=== PATIENT | female | born 1985 | race African-American/Black ===

== ENCOUNTER 2016-10-14 03:33 | Emergency (ER) | payer SELFPAY ==
[~2016-10-14] VITALS: Ht 162.6 cm; Wt 62.8 kg
[2016-10-14 03:46] VITALS: Ht 162.6 cm; Wt 62.8 kg
[2016-10-14] MEDS ORDERED: ONDANSETRON (ODT) 4 MG TAB ODT STA (04:17)
[2016-10-14] MEDS ORDERED: ACET500C5 PO (04:30)
[2016-10-14] MEDS ORDERED: ONDA4TAB14 PO (04:30)
--- NOTE | 2016-10-14 04:38 | ERD ---
ER Documentation Chief Complaint Date/Time DATE: 10/14/16 TIME: 04:35 Chief Complaint vomiting since taking amoxicillin for otitis media, bilat ear HPI 31-year-old female presents here in emergency department for complaints of vomiting after starting to take amoxicillin today. Patient was diagnosed of an ear infection, is currently taking amoxicillin today, started to have vomiting afterwards, patient felt nauseous and a little bit dizzy. Patient denies any abdominal pain. Patient denies any diarrhea. Patient denies any flank pain. She denies any blood in the vomit. Patient does not have any blood in the stool or black stool. Patient denies any ear discharge. ROS All systems reviewed and are negative except as per history of present illness. Medications Home Meds Active Scripts Ondansetron (Ondansetron Odt) 4 Mg Tab.rapdis, 4 MG PO Q8 Y for NAUSEA AND/OR VOMITING, #30 TAB Prov:TEODORA PRITCHETT [employer] 10/14/16 Acetaminophen* (Tylophen*) 500 Mg Capsule, 1 CAP PO Q6H Y for PAIN AND OR ELEVATED TEMP, #20 CAP Prov:TEODORA PRITCHETT [employer] 10/14/16 Allergies Allergies: Coded Allergies: No Known Allergy (Unverified , 01/25/15) PMhx/Soc History of Surgery: Yes () Anesthesia Reaction: No Hx Neurological Disorder: No Hx Respiratory Disorders: No Hx Cardiac Disorders: No Hx Psychiatric Problems: No Hx Miscellaneous Medical Probl: No Hx Alcohol Use: No Hx Substance Use: No Hx Tobacco Use: No FmHx Family History: No coronary disease, No diabetes, No other Physical Exam Vitals Vital Signs Date Time Temp Pulse Resp B/P Pulse Ox O2 Delivery O2 Flow Rate FiO2 10/14/16 03:46 96.9 76 20 118/81 97 Physical Exam GENERAL: The patient is well developed and appropriate for usual state of health, in no apparent distress. CHEST: Clear to auscultation bilaterally. There are no rales, wheezes or rhonchi. HEENT: Atraumatic. Ears: bilateral ear tympanic membrane noted to be erythematous and bulging. No ear canal swelling. No ear discharge. Nose: normal nasal turbinates, no erythema or swelling. Normal nasal discharge. Throat: oropharynx clear. No tonsillar swelling or tonsillar exudates. No lymphadenopathy. HEART: Regular rate and rhythm. No murmurs, clicks, rubs or gallops. No S3 or S4. ABDOMEN: Soft, nontender and nondistended. Good bowel sounds. No rebound or guarding. No gross peritonitis. No gross organomegaly or masses. No Briscoe sign or McBurney point tenderness. BACK: No midline or flank tenderness. EXTREMITIES: Equal pulses bilaterally. There is no peripheral clubbing, cyanosis or edema. No focal swelling or erythema. Full range of motion. Grossly neurovascularly intact. NEURO: Alert and oriented. Cranial nerves 2-12 intact. Motor strength in all 4 extremities with 5/5 strength. Sensation grossly intact. Normal speech and gait. SKIN: There is no apparent rash or petechia. The skin is warm and dry. HEMATOLOGIC AND LYMPHATIC: There is no evidence of excessive bruising or lymphedema. No gross cervical, axillary, or inguinal lymphadenopathy. Results 24 hrs Current Medications Medications (Trade) Dose Ordered Sig/Deidra Route PRN Reason Start Time Stop Time Status Last Admin Dose Admin Ondansetron HCl (Zofran Odt) 4 mg ONCE STAT ODT 10/14/16 04:17 10/14/16 04:18 DC 10/14/16 04:23 Patient was given Zofran here in the emergency department. After treatment, patient was able to tolerate po fluids here in the emergency department without any vomiting. There is no signs and symptoms of dehydration. Procedures/MDM Medical decision making: Patient has bilateral ear otitis media, currently taking amoxicillin, most likely patient's dizziness and nausea and vomiting most likely from the infection in that area. Patient was given Zofran, patient is able to tolerate oral fluids here in emergency department prior to going home. Patient does not have any symptoms of abdominal emergencies at this time. Patient's abdominal exam is normal. Patient does not have any diarrhea. No symptoms of dehydration. Patient was advised to follow-up with primary care doctor in 2-3 days for reevaluation of symptoms. Patient is advised to return to emergency department for worsening symptoms. Departure Diagnosis: Primary Impression: Bilateral otitis media Otitis media type: serous Chronicity: acute Recurrence: not specified as recurrent Qualified Code: H65.03 - Bilateral acute serous otitis media, recurrence not specified Additional Impression: Vomiting Vomiting type: unspecified Vomiting Intractability: unspecified Nausea presence: unspecified Qualified Code: R11.10 - Vomiting, intractability of vomiting not specified, presence of nausea not specified, unspecified vomiting type Condition: Stable Patient Instructions: Vomiting (6Y-Adult) Additional Instructions: continue amoxicillin given TEODORA PRITCHETT NP Oct 14, 2016 04:38
== END 2016-10-14 05:05 | disposition home or self-care (01) ==
LOC: FTE 03:33
DX: H65.03 Acute serous otitis media, bilateral (principal)
CPT/HCPCS: 99283